=== PATIENT | female | born 1975 | race Caucasian/White ===

== ENCOUNTER 2019-11-02 14:31 | Emergency (ER) | payer OTHER, SELFPAY ==
--- NOTE | ~2019-11-02 | CT_ITS ---
EXAMINATION: CT abdomen pelvis wo con DATE: 11/02/2019 20:46 INDICATION: Abdominal pain and constipation TECHNIQUE: Computed tomography (CT) of the abdomen and pelvis was performed without intravenous contr ast. The dose-length product (DLP) was 389.84 mGy-cm. Automated exposure control and iterative recons truction technique were employed. COMPARISON: 11/15/2016 FINDINGS: The lung bases are clear. The heart size is normal. Stones are present in the nondistended gallbladder. The liver, spleen, pancreas, and adrenal glands are normal. The kidneys are unremarkable . No pathologically enlarged abdominal or pelvic lymph nodes are identified. There is calcified ather osclerosis of the aorta and many of the other arteries, somewhat greater than expected for patient ag e. There is no free intraperitoneal gas or evidence of bowel obstruction. There is a large volume of colonic stool. The appendix is normal. Moderate thoracolumbar spondylosis is unchanged. There is a sm all fat-containing umbilical hernia. IMPRESSION: 1. Constipation. 2. Calcified atherosclerosis somewhat greater than expected for patient age. Reviewed, dictated and finalized at location A.
[2019-11-02 15:48] VITALS: BP 163/89; PULSE 100; RESP 18; TEMP 36.6; O2SAT 99
[2019-11-02 15:50] VITALS: BP 157/92; PULSE 86; RESP 16; TEMP 36.8; O2SAT 100
[2019-11-02 15:57] LABS: Basophils Percent Auto 0.2 % (0.2-1.2); Eosinophils Absolute Auto 0.1 K/mm3 (0-0.3); Eosinophils Percent Auto 0.7 % (0-4.4); Hematocrit 36.9 % (37.0-47.0); Hemoglobin 12.4 g/dL (12.0-15.0); Immature Granulocyte Absolute 0.02 K/mm3 (0.00-0.031); Immature Granulocyte Percent A 0.2 % (0-0.5); Lymphocytes Absolute Auto 1.35 K/mm3 (0.9-3.2); Lymphocytes Percent Auto 16.7 % (18.3-44.2); Mean Corpuscular HGB Conc 33.6 g/dl (32-36); Mean Corpuscular Hemoglobin 29.8 pg (26-34); Mean Corpuscular Volume 88.7 fl (80-100); Mean Platelet Volume 9.3 fl (7.4-10.4); Monocytes Absolute Auto 0.5 K/mm3 (0.1-0.6); Monocytes Percent Auto 5.6 % (2.6-8.5); Neutrophils Absolute Auto 6.2 K/mm3 (1.3-6.7); Neutrophils Percent Auto 76.6 % (45.5-73.1); Platelet Count Result 309 k/mm3 (150-375); Red Blood Count 4.16 M/mm3 (4.2-5.4); Red Cell Distribution Width 13.3 % (11.5-14.5); White Blood Count 8.1 K/mm3 (4.5-10.0)
[2019-11-02 16:09] LABS: Alanine Aminotransferase 24 U/L (4-35); Albumin Level 4.1 g/dL (3.5-5.1); Alkaline Phosphatase 46 U/L (38-126); Anion Gap 4 mmol/L (8-16); Aspartate Amino Transferase 24 U/L (14-36); Bilirubin,Total 0.6 mg/dL (0.2-1.3); Blood Urea Nitrogen 14 mg/dL (7-17); Calcium 9.1 mg/dL (8.4-10.2); Carbon Dioxide 27 mmol/L (22-30); Chloride 105 mmol/L (98-107); Estimated CRCL calculation 80 ml/min; Estimated Glomerular Filt Rate > 60; Glucose 125 mg/dL (65-105); Lipase 98 U/L (23-300); Potassium 4.4 mmol/L (3.4-5.0); Sodium 136 mmol/L (137-145)
[2019-11-02 16:23] LABS: Add Urine Microscopic? YES; Appearance Urine Clear (Clear); Bilirubin Urine Negative (Negative); Blood Urine Negative (Negative); Color Urine Straw (Yellow); Glucose Urine UA Negative (Negative); Ketones Urine Trace mg/dL (Negative); Leukocyte Esterase Ur Negative LEU/UL (Negative); Nitrate Urine Negative (Negative); Protein Urine 2+ mg/dL (Negative); RBC Urine 0-2 /hpf (0-2); Squamous Epithelial Cell Urine Occasional /hpf (Few); Urobilinogen Urine Negative mg/dL (<2.0); WBC Urine 0-3 /hpf
--- NOTE | 2019-11-02 20:06 | ED.ABDPAIN ---
HPI - Abdominal Pain General Chief Complaint: Abdominal Pain Stated Complaint: constipated Time Seen by Provider: 11/02/19 19:59 History of Present Illness HPI narrative: Pt c/o constipation x 4 days, last bowel movement was 4 days ago. Pt states she is having lower abd pain, dull aching, mild, non radiating. Pt states she has a h/o constipation, has taken stool softeners and has not worked. Denies n/v or fever. Related Data Home Medications Medication Instructions Recorded Confirmed docusate sodium 100 mg capsule 300 mg PO BID PRN cap 12/05/18 magnesium chloride 71.5 mg 71.5 mg PO BID 12/05/18 (magnesium chloride) tablet,delayed release multivitamin 1 tablet PO DAILY 12/05/18 Allergies Allergy/AdvReac Type Severity Reaction Status Date / Time naproxen Allergy Unknown Verified 11/15/16 14:55 sucralose Allergy Unknown Verified 11/15/16 14:55 Review of Systems Review of Systems: All systems reviewed & are unremarkable except as noted in HPI and below Constitutional: Constitutional: Denies body ache(s), Denies chills, Denies excessive sweating, Denies fatigue, Denies fever(s), Denies headache(s), Denies lethargy, Denies malaise, Denies weakness and Denies weight loss Eyes: Eyes: Denies blurry vision, Denies change in vision and Denies loss of vision ENT: Denies dizziness, Denies ear discharge, Denies headache(s), Denies lip swelling, Denies epistaxis, Denies nasal congestion, Denies neck pain, Denies throat swelling and Denies tongue swelling Cardiovascular: Cardiovascular: Denies chest pain, Denies chest pain at rest, Denies chest pain with activity, Denies diaphoresis, Denies rapid heart rate, Denies edema, Denies irregular heart rhythm, Denies lightheadedness, Denies palpitations, Denies dyspnea and Denies dyspnea on exertion Respiratory: Respiratory: Denies chest congestion, Denies cough, Denies hemoptysis, Denies dyspnea and Denies dyspnea on exertion Gastrointestinal: Gastrointestinal: Denies melena, Denies hematochezia, Reports constipation, Denies diarrhea, Denies nausea, Denies vomiting and Denies hematemesis Musculoskeletal: Musculoskeletal: Denies abnormal gait, Denies deformity, Denies joint swelling, Denies limited range of motion, Denies neck pain and Denies numbness Neurologic: Denies Abnormal speech present, Denies abnormal gait, Denies confusion, Denies dizziness, Denies headache(s), Denies focal weakness, Denies loss of vision, Denies numbness, Denies Other visual disturbances, Denies Sensory deficit (Neuro) and Denies weakness Psychiatric: Psychiatric: Denies confusion, Denies depression, Denies auditory hallucinations, Denies homicidal ideation and Denies suicidal ideation Endocrine: Endocrine: Denies cold intolerance, Denies excessive sweating, Denies fatigue, Denies heat intolerance and Denies palpitations Hematologic/Lymphatic: Hematologic/Lymphatic: Denies easy bleeding and Denies easy bruising Allergic/Immunologic: Allergic/Immunologic: Denies lip swelling, Denies throat swelling and Denies tongue swelling [facility] Social History Social History Smoking status: Never smoker Alcohol intake: never Gender identity (if verbalized by the patient): Female Exam Const: General: cooperative, healthy appearing, comfortable, no acute distress, well developed, alert and awake; No confusion Orientation/consciousness: oriented to person, oriented to place, oriented to time, patient oriented x3 and No confusion Limitations: no limitations HENMT: Head: normal to inspection, normocephalic and atraumatic Ears: hearing grossly normal bilaterally, TM normal on the right and TM normal on the left General nose exam: Normal external nose present, Normal nares present and No nasal discharge present Face and sinus: normal facial exam Mouth: Yes Normal oral and palatal mucosa present, Yes lip normal, Yes tongue normal and Yes oropharynx normal [place]
[2019-11-02] MEDS: SODIUM CHLORIDE 0.9% IV 1,000 ML 999 ML IV CONT (20:23)
[2019-11-02 20:24] VITALS: BP 170/100; PULSE 88; RESP 18; O2SAT 100
[2019-11-02 22:09] VITALS: BP 163/88; PULSE 92; RESP 16; O2SAT 96
[2019-11-02] MEDS: polyethylene glycoL 3350 238 GM BOTTLE 17 GM PO (23:23)
[2019-11-02] MEDS: MAGNESIUM CITRATE 300 ML BTL PO (23:23)
[2019-11-02] MEDS: DOCUSATE SODIUM 100 MG CAPSULE 200 MG PO (23:23)
[2019-11-02 23:28] VITALS: BP 179/98; PULSE 98; RESP 20; O2SAT 99
[2019-11-03 02:01] VITALS: BP 158/89; PULSE 89; RESP 20; O2SAT 96
== END 2019-11-03 02:06 | disposition home or self-care (01) ==
PROVIDERS: Emergency Medicine; Emergency Provider Emergency Medicine; PCP Internal Medicine
DX: K59.09 Other constipation (principal); I70.0 Atherosclerosis of aorta
CPT/HCPCS: 36415; 74176; 80053; 81001; 81025; 83690; 85025; 96360; 96361; 99284; A9270; J7030

== ENCOUNTER 2023-08-20 09:16 | Outpatient (CLI) | payer OTHER, SELFPAY ==
[2023-08-20 09:52] LABS: Hemoglobin 12.3 g/dL (12.0-15.0); Mean Corpuscular HGB Conc 31.5 g/dl (32-36); Mean Corpuscular Hemoglobin 26.9 pg (26-34); Mean Corpuscular Volume 85.3 fl (80-100); Mean Platelet Volume 9.5 fl (7.4-10.4); Platelet Count Result 376 k/mm3 (150-375); Red Blood Count 4.57 M/mm3 (4.2-5.4); Red Cell Distribution Width 18.2 % (11.5-14.5); White Blood Count 7.6 K/mm3 (4.5-10.0)
[2023-08-20 09:59] LABS: Appearance Urine Clear (Clear); Bacteria Urine Rare /hpf; Bilirubin Urine Negative (Negative); Blood Urine Negative (Negative); Color Urine Yellow (Yellow); Glucose Urine UA Negative (Negative); Ketones Urine Negative (Negative); Leukocyte Esterase Ur Negative LEU/UL (Negative); Nitrate Urine Negative (Negative); Protein Urine 3+ mg/dL (Negative); RBC Urine 0-2 /hpf (0-2); Specific Grav Ur 1.016 (1.001-1.035); Squamous Epithelial Cell Urine None Seen /hpf (Few); Urobilinogen Urine 0.2 mg/dL (<2.0); WBC Urine 0-5 /hpf (0-3)
[2023-08-20 10:05] LABS: Albumin Level 4.2 g/dL (3.5-5.1); Anion Gap 9 mmol/L (4-12); Blood Urea Nitrogen 23 mg/dL (7-17); Calcium 9.6 mg/dL (8.4-10.2); Carbon Dioxide 30 mmol/L (22-30); Chloride 100 mmol/L (98-107); Creatine Kinase 78 U/L (30-135); Estimated Glomerular Filt Rate 53; Glucose 122 mg/dL (65-110); Phosphorus 4.9 mg/dL (2.5-4.5); Potassium 4.4 mmol/L (3.4-5.0); Sodium 139 mmol/L (137-145)
[2023-08-20 10:17] LABS: Parathyroid Intact < 3.5 pg/mL (7.5-53.5)
[2023-08-20 10:20] LABS: Erythrocyte Sedimentation Rate 15 mm/hr (0-20)
[2023-08-20 10:32] LABS: Complement C3 105 mg/dL (88-165)
[2023-08-20 10:36] LABS: Creatinine Urine 63.3 mg/dL
[2023-08-20 10:54] LABS: Total Protein Urine Random 342 mg/dL
[2023-08-20 11:41] LABS: Add Urine Microscopic? YES
[2023-08-22 16:22] LABS: Kappa\\Lambda Light Chains 1.71 (0.26-1.65); Lambda Light Chain 25.5 mg/L (5.7-26.3)
[2023-08-24 21:03] LABS: Immunofixation, Serum Normal pattern.
== END 2023-08-20 09:17 | disposition home or self-care (01) ==
PROVIDERS: PCP Nurse Practitioner; Visit Provider Internal Medicine Nephrology
DX: N18.31 Chronic kidney disease, stage 3a (principal)
CPT/HCPCS: 36415; 80069; 81001; 82550; 82570; 83883; 83970; 84156; 85027; 85652; 86038; 86039; 86160; 86334

== ENCOUNTER 2023-09-09 06:36 | Outpatient (CLI) | payer OTHER, SELFPAY ==
[2023-09-09 09:53] LABS: Total Volume 24 Hour Urine 1100 ml; Urea Nitrogen 24 Hour Urine 6.3 G/DAY (12-20)
[2023-09-10 18:54] LABS: Creat 24 Hr 0.78 g/24 h (0.50-2.15); Pro/Creat Ratio 1606 mg/g creat (<150); Pro/Creat Ratio mg/mg 1.606 (<0.150); Protein,total, 24 Hr Ur 1254 mg/24 h (<150)
[2023-09-12 09:43] LABS: Albumin 84 %
== END 2023-09-09 06:37 | disposition home or self-care (01) ==
LOC: ANHLAB 06:37
PROVIDERS: PCP Nurse Practitioner; Visit Provider Internal Medicine Nephrology
DX: N18.31 Chronic kidney disease, stage 3a (principal)
CPT/HCPCS: 81050; 84540; 86335

== ENCOUNTER 2024-09-01 16:35 | Emergency (ER) | payer OTHER, SELFPAY ==
[2024-09-01 16:54] VITALS: BP 162/87; PULSE 84; RESP 16; TEMP 36.7; O2SAT 100
[2024-09-01 17:29] LABS: EDSTREPNEGPOS1 Negative (Negative)
--- NOTE | 2024-09-01 18:26 | ED_ITS ---
HPI - URI/Sore Throat General Chief Complaint: Upper Respiratory Infection Stated Complaint: Sore Throat,Cough,Drainage Time Seen by Provider: 09/01/24 17:10 Source: patient and RN notes reviewed Mode of arrival: ambulatory Limitations: no limitations History of Present Illness HPI Narrative: 49-year-old female presents Express Care complaining of upper respiratory symptoms for approximately 1 week. Patient reports congestion, runny nose, mucopurulent nasal drainage, sore throat, dry cough. Patient says symptoms are getting worse and not getting better. Patient tried [id number] medications that relief. 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 Patient denies any chest pain, difficulty breathing, nausea vomiting, diarrhea, abdominal pain, or any other symptoms. Has a history of coronary artery disease status post stent placement, type 1 diabetes, hypertension. Related Data Home Medications ?Medication ?Instructions ?Recorded ?Confirmed ?Last Taken ?Type magnesium chloride 71.5 mg 71.5 mg PO BID 12/05/18 08/26/23 Unknown History (magnesium chloride) tablet,delayed release (Slow-Mag) multivitamin 1 tablet PO DAILY 12/05/18 08/26/23 Unknown History sacubitril 24 mg-valsartan 26 mg 1 tablet PO BID 07/18/23 08/26/23 Unknown History tablet (Entresto) clopidogrel 75 mg tablet 75 mg PO DAILY 08/20/23 08/26/23 Unknown History zinc acetate 50 mg (zinc) capsule 50 mg PO DAILY 08/20/23 08/26/23 Unknown History (Galzin) atorvastatin 40 mg tablet mg 09/01/24 Unknown History carvedilol 3.125 mg tablet mg 09/01/24 Unknown History spironolactone 25 mg tablet mg 09/01/24 Unknown History Allergies Allergy/AdvReac Type Severity Reaction Status Date / Time naproxen AdvReac Intermediate Nausea Verified 09/01/24 16:50 sucralose AdvReac Intermediate Nausea Verified 09/01/24 16:50 Review of Systems Review of Systems: CONSTITUTIONAL: Denies fever, chills, body aches, or sweats. EYES: Denies visual changes, redness, or discharge. ENT: Positive for rhinorrhea, congestion, sore throat. Negative for otalgia. CARDIOVASCULAR: Denies chest pain, palpitations, or edema. RESPIRATORY: Positive for cough. Negative for dyspnea. GASTROINTESTINAL: Denies abdominal pain, nausea, vomiting, or diarrhea. GENITOURINARY: Denies dysuria or hematuria. SKIN: Denies rash or itching. MUSCULOSKELETAL: Denies back pain, joint pain, or myalgia. NEUROLOGIC: Denies headache, numbness, or weakness. PSYCHIATRIC: Denies anxiety or depression. All other systems reviewed are negative, except as documented in HPI. [facility] Past Medical History Medical History History of common carotid artery stent placement BMI 24.0-24.9, adult COVID-19 Depression Diverticulitis DM (diabetes mellitus), type 2, uncontrolled Type 2 diabetes mellitus without complication Surgical History Surgical History History of dilation and curettage H/O: hysterectomy Social History Social History Smoking status: Former smoker Second hand tobacco smoke exposure: No Alcohol intake: current Alcohol use details: once a month Substance use: never Substance use type: does not use Do You Feel Safe in your Home?: Yes Lack of Transportation: No Lack of Food: Never True Current Housing: I Have Housing Concerned About Future Housing: No Difficulty Paying Gas/Electric Bills: No Difficulty Paying for Meds: YES Currently Unemployed: No Education: Bachelor's Degree Difficulty w/ Childcare or Family Care: No Living arrangements: alone Occupation/Education: occupation 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 There is no relevant family history pertinent to the patient complaint. Exam Narrative: GENERAL: This is a well-nourished, well-developed adult, in no apparent distress. They are non ill-appearing, nontoxic appearing. HEAD: normocephalic, atraumatic. EYES: Sclera clear/white. Vision is grossly intact. Conjunctiva normal bilaterally. Extraocular movements intact. EARS: External ears normal, auditory canals clear and without drainage, TMs without erythema or perforation. Hearing grossly intact. NOSE: External nose normal with no obvious nasal discharge, nasal turbinates erythematous, no rhinorrhea. THROAT: Mucous membranes moist, posterior pharynx erythematous without exudate. Uvula is midline. Postnasal drip present. NECK: Neck supple, non-tender without lymphadenopathy, masses or thyromegaly. CARDIOVASCULAR: Regular rate and rhythm without murmurs, gallops, or rubs. RESPIRATORY: Clear to auscultation. Breath sounds equal bilaterally. No wheezes, rales, or rhonchi. SKIN: warm, Dry, intact with no suspicious lesions or rash, good texture and turgor. NEURO: awake, alert, and oriented to person, place and time. There were no obvious focal neurologic abnormalities. EXTREMITIES: No joint tenderness, effusion, or edema noted. BACK: Nontender without deformity. Course Course Emergency Course: Portions of this record may have been created with voice recognition software Level of Care: Express Care Visit Vital Signs Vital signs: Vital Signs Temperature 98.1 F 09/01/24 16:54 Pulse Rate 84 09/01/24 16:54 Respiratory Rate 16 09/01/24 16:54 Blood Pressure 162/87 H 09/01/24 16:54 Pulse Oximetry 100 09/01/24 16:54 Temperature 98.1 F 09/01/24 16:54 Pulse Rate 84 09/01/24 16:54 Respiratory Rate 16 09/01/24 16:54 Blood Pressure 162/87 H 09/01/24 16:54 Pulse Oximetry 100 09/01/24 16:54 MDM - URI/Sore Throat MDM Narrative Medical decision making narrative: Rapid strep is negative. Throat culture pending. Given patient's length of symptoms that her symptoms are worsening will go ahead and treat her for bacterial sinusitis with Augmentin. Patient requesting fluconazole as she gets yeast infections while taking antibiotics. Prescribed fluconazole in by stone take if she develops symptoms. Discussed physical exam findings. Advised supportive measures and signs/symptoms to go to the ER. Pt is appropriate for outpt treatment and f/u. Differential Diagnosis Differential diagnosis: Likely upper respiratory infection, sinusitis, viral infection and pharyngitis Lab Data Attestation: I reviewed the patient's lab results. Labs: Lab Results 09/01/24 Range/Units 17:27 POC Grp A Strep Screen Negative (Negative) Discharge Plan Discharge Clinical Impression: Sinusitis Qualifiers: Sinusitis location: unspecified location Chronicity: acute Recurrence: non- recurrent Qualified Code(s): J01.90 - Acute sinusitis, unspecified Patient Disposition: Home Condition: Stable Instructions: Antibiotic Form, Sinusitis (ED) Additional Instructions: Your rapid strep was negative today. A throat culture sent off and if it is positive for strep you will be contacted. Is likely have a sinus infection. Take the antibiotics as directed and complete the course even if you start to feel better. You may use a Neti pot saline rinse 3 times a day with lukewarm distilled water Continue to take Tylenol as needed for pain or fevers. Use a humidifier or vaporizer at night. Drink plenty of water. 8-10 glasses per day. Use flonase 2 times per day for 5 days then as needed Take mucinex 2 times per day and be sure to take with 8oz of water. Follow up with Primary provider in 3-5 days Please go to the ER if he develops any difficulty breathing, worsening symptoms, or any other concerns Take fluconazole if he develops vaginal yeast infection symptoms while on antibiotics. You may repeat the dose every 72 hours symptoms persist for maximum of 2 doses. Patient Language: Turkmen Prescriptions: New fluconazole 150 mg tablet 150 mg PO Q72H Qty: 2 0RF amoxicillin-pot clavulanate 875-125 mg tablet 1 tablet PO Q12H 7 Days Qty: 14 0RF No Action atorvastatin 40 mg tablet spironolactone 25 mg tablet carvedilol 3.125 mg tablet Entresto 24-26 mg tablet 1 tablet PO BID clopidogrel 75 mg tablet 75 mg PO DAILY Galzin 50 mg (zinc) capsule 50 mg PO DAILY docusate sodium [Colace] 100 mg capsule 100 mg PO BID PRN (Reason: constipation) Qty: 14 0RF polyethylene glycol 3350 [Miralax] 17 gram/dose powder 17 gm PO DAILY PRN (Reason: constipation) Qty: 238 0RF Slow-Mag 71.5 mg tablet,delayed release (DR/EC) 71.5 mg PO BID multivitamin Tablet 1 tablet PO DAILY insulin glargine [Basaglar KwikPen U-100 Insulin] 100 unit/mL (3 mL) insulin pen 15 unit subcut QPM Qty: 15 1RF buspirone 15 mg tablet See Rx Instructions .ROUTE .COMPLEX Qty: 90 1RF Dose Instruction: TAKE 1 TABLET BY MOUTH THREE TIMES DAILY Rx Instructions: TAKE 1 TABLET BY MOUTH THREE TIMES DAILY Follow-up/Referrals: Ba,DANI Pink [Primary Care Provider] - Time of Disposition: 17:24
== END 2024-09-01 17:32 | disposition home or self-care (01) ==
PROVIDERS: PCP Physician Assistant
DX: J01.90 Acute sinusitis, unspecified (principal); Z87.891 Personal history of nicotine dependence; E10.9 Type 1 diabetes mellitus without complications; I25.10 Atherosclerotic heart disease of native coronary artery without angina pectoris; Z95.5 Presence of coronary angioplasty implant and graft; F32.A Depression, unspecified
CPT/HCPCS: 87081; 87880; 99213; G0463

== ENCOUNTER 2024-09-23 16:38 | Emergency (ER) | payer OTHER, SELFPAY ==
--- NOTE | 2024-09-23 16:45 | ED_ITS ---
HPI - General Adult General Chief complaint: Upper Respiratory Infection Stated complaint: sore throat Source: patient Mode of arrival: ambulatory Limitations: no limitations History of Present Illness HPI narrative: Pt is a 49 y/o female presenting with c/o sore throat. Additional sx reported include cough. Sx began 2-3 days ago. 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 No known exposure to COVID, FLU, STREP, PNA. NO additional complaints. Related Data Home Medications ?Medication ?Instructions ?Recorded ?Confirmed ?Last Taken ?Type magnesium chloride 71.5 mg 71.5 mg PO BID 12/05/18 08/26/23 Unknown History (magnesium chloride) tablet,delayed release (Slow-Mag) multivitamin 1 tablet PO DAILY 12/05/18 08/26/23 Unknown History sacubitril 24 mg-valsartan 26 mg 1 tablet PO BID 07/18/23 08/26/23 Unknown History tablet (Entresto) clopidogrel 75 mg tablet 75 mg PO DAILY 08/20/23 08/26/23 Unknown History zinc acetate 50 mg (zinc) capsule 50 mg PO DAILY 08/20/23 08/26/23 Unknown History (Galzin) atorvastatin 40 mg tablet mg 09/01/24 Unknown History carvedilol 3.125 mg tablet mg 09/01/24 Unknown History spironolactone 25 mg tablet mg 09/01/24 Unknown History Allergies Allergy/AdvReac Type Severity Reaction Status Date / Time naproxen AdvReac Intermediate Nausea Verified 09/23/24 16:52 sucralose AdvReac Intermediate Nausea Verified 09/23/24 16:52 Review of Systems Review of Systems: CONSTITUTIONAL: Denies body aches, fever, chills, or sweats. EYES: Denies visual changes, redness, or discharge. ENT: Reports sore throat, denies rhinorrhea, congestion, or otalgia. CARDIOVASCULAR: Denies chest pain, palpitations, or edema. RESPIRATORY: reports cough denies dyspnea. GASTROINTESTINAL: Denies abdominal pain, nausea, vomiting, or diarrhea. GENITOURINARY: Denies dysuria or hematuria. SKIN: Denies rash, itching, or wounds. MUSCULOSKELETAL: Denies back pain, joint pain, or myalgia. NEUROLOGIC: Denies headache, numbness, tingling, or weakness. PSYCH: Denies depression or anxiety. All systems reviewed & are unremarkable except as noted in HPI and below PMFSH Past Medical History Medical History History of common carotid artery stent placement BMI 24.0-24.9, adult COVID-19 Depression Diverticulitis DM (diabetes mellitus), type 2, uncontrolled Type 2 diabetes mellitus without complication Surgical History Surgical History History of dilation and curettage H/O: hysterectomy Social History Social History Smoking status: Former smoker Second hand tobacco smoke exposure: No Alcohol intake: current Alcohol use details: once a month Substance use: never Substance use type: does not use Do You Feel Safe in your Home?: Yes Lack of Transportation: No Lack of Food: Never True Current Housing: I Have Housing Concerned About Future Housing: No Difficulty Paying Gas/Electric Bills: No Difficulty Paying for Meds: YES Currently Unemployed: No Education: Bachelor's Degree Difficulty w/ Childcare or Family Care: No Living arrangements: alone Occupation/Education: occupation 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 HEAD: Normocephalic, atraumatic. EYES: EOMI. No redness or drainage. Conjunctivae normal. ENT: Mucous membranes pink and moist. Nares clear. No rhinorrhea. TMs normal bilaterally. Throat normal. Uvula midline. NECK: Normal AROM. Supple. No lymphadenopathy. CHEST: No respiratory distress. Clear to auscultation. HEART: Regular rate and rhythm. No murmur appreciated. Normal peripheral pulses. ABDOMEN: Soft, nontender, nondistended, normal active bowel sounds. MUSCULOSKELETAL: No bony tenderness. EXTREMITIES: Normal range of motion. No edema. SKIN: Warm, dry, no rash. Capillary refill normal. Normal skin turgor. NEURO: No focal deficits. Alert and oriented x3. Gait steady. PSYCH: Normal affect. No signs of depression or anxiety. Course Course Emergency Course: Discussed elevated blood pressure readings with patient and advised daily BP monitoring and f/u with PCP if persisting. Level of Care: Express Care Visit Vital Signs Vital signs: Vital Signs Temperature 98.2 F 09/23/24 16:55 Pulse Rate 94 09/23/24 16:55 Respiratory Rate 16 09/23/24 16:55 Blood Pressure 165/82 H 09/23/24 16:55 Pulse Oximetry 99 09/23/24 16:55 Temperature 98.2 F 09/23/24 16:55 Pulse Rate 94 09/23/24 16:55 Respiratory Rate 16 09/23/24 16:55 Blood Pressure 165/82 H 09/23/24 16:55 Pulse Oximetry 99 09/23/24 16:55 Medical Decision Making Vital Signs Vital Signs: Vital Signs Temperature 98.2 F 09/23/24 16:55 Pulse Rate 94 09/23/24 16:55 Respiratory Rate 16 09/23/24 16:55 Blood Pressure 165/82 H 09/23/24 16:55 Pulse Oximetry 99 09/23/24 16:55 Temperature 98.2 F 09/23/24 16:55 Pulse Rate 94 09/23/24 16:55 Respiratory Rate 16 09/23/24 16:55 Blood Pressure 165/82 H 09/23/24 16:55 Pulse Oximetry 99 09/23/24 16:55 Discharge Plan Discharge Clinical Impression: Essential (primary) hypertension Upper respiratory infection Qualifiers: URI type: acute nasopharyngitis (common cold) Qualified Code(s): J00 - Acute nasopharyngitis [common cold] Patient Disposition: Home Condition: Stable Instructions: Antibiotic Form, Upper Respiratory Infection (ED) Additional Instructions: Go straight to ER should your symptoms become worse or should any new symptoms develop Patient Language: Indian Prescriptions: No Action atorvastatin 40 mg tablet spironolactone 25 mg tablet carvedilol 3.125 mg tablet fluconazole 150 mg tablet 150 mg PO Q72H Qty: 2 0RF Entresto 24-26 mg tablet 1 tablet PO BID clopidogrel 75 mg tablet 75 mg PO DAILY Galzin 50 mg (zinc) capsule 50 mg PO DAILY docusate sodium [Colace] 100 mg capsule 100 mg PO BID PRN (Reason: constipation) Qty: 14 0RF polyethylene glycol 3350 [Miralax] 17 gram/dose powder 17 gm PO DAILY PRN (Reason: constipation) Qty: 238 0RF Slow-Mag 71.5 mg tablet,delayed release (DR/EC) 71.5 mg PO BID multivitamin Tablet 1 tablet PO DAILY insulin glargine [Basaglar KwikPen U-100 Insulin] 100 unit/mL (3 mL) insulin pen 15 unit subcut QPM Qty: 15 1RF buspirone 15 mg tablet See Rx Instructions .ROUTE .COMPLEX Qty: 90 1RF Dose Instruction: TAKE 1 TABLET BY MOUTH THREE TIMES DAILY Rx Instructions: TAKE 1 TABLET BY MOUTH THREE TIMES DAILY Follow-up/Referrals: PHYSICIAN,OFFICE EMPLOYEE [Primary Care Provider] - 09/24/24 Stand Alone Forms: Work/School Release IP Time of Disposition: 17:09
[2024-09-23 16:55] VITALS: BP 165/82; PULSE 94; RESP 16; TEMP 36.8; O2SAT 99
[2024-09-23 17:11] LABS: EDCOVIDSCREEN Negative (Negative); EDINFLUASCREEN Negative (Negative); EDINFLUBSCREEN Negative (Negative); EDSTREPNEGPOS1 Negative (Negative)
== END 2024-09-23 17:16 | disposition home or self-care (01) ==
PROVIDERS: Emergency Provider Registered Nurse
DX: I10 Essential (primary) hypertension (principal); J00 Acute nasopharyngitis [common cold]; Z20.822 Contact with and (suspected) exposure to COVID-19; E11.9 Type 2 diabetes mellitus without complications; Z79.4 Long term (current) use of insulin; F32.A Depression, unspecified; Z86.16 Personal history of COVID-19; Z95.828 Presence of other vascular implants and grafts; Z87.891 Personal history of nicotine dependence
CPT/HCPCS: 87426; 87804; 87880; 99212; G0463

== ENCOUNTER 2024-09-25 17:53 | Emergency (ER) | payer OTHER, SELFPAY ==
--- OUTSIDE RECORDS SUMMARY | 2024-09-25 17:56 | XMS_ITS | Encounter Summary ---
Author Organization [facility] Address [address] [place] [address] Care Team Providers Care Livestock Broker Name Role Phone Ever Gaona NP Primary Care Provider [phone] Encounter Details Date Type Department Care Team (Late st Contact Info) Description 05/25/2024 MyCTradeGigt Message Enc [facility] Diabetes and Endocrinology - [address] [address] Bettye Mckeon MD [address] [place] [address] [phone] Donna Goode Social History Tobacco Use Types Packs/Day Years Used Date Smoking Tobacco: Never Passive Smoke Exposure: Never Smokeless Tobacco: Never Alcohol Use Standard Drinks/Week Comments Yes 0 (1 standard drink = 0.6 oz pur e alcohol) rare, social [id number] Health Literacy Answer Date Recor ded How often do you need to hav e someone help you when you read instructions, pamphlets, or other written material from your doctor or pharmacy? Never 02/19/2024 [facility] Utilities Answer Date Recorded In the past 12 months has e electric, gas, oil, or water company threatened to shut off services in your home? No 02/19/2024 Humiliation, Afraid, Rape, and Kick questionnair e Answer Date Recorded Within the last year, have y ou been afraid of your partner or ex-partner? No 02/19/2024 Within the last year, have y ou been humiliated or emotionally abused in other ways by your partner or ex-partner? No Within the last year, have y ou been kicked, hit, slapped, or otherwise physically hurt by your partner or ex-partner? No 02/19/2024 Within the last year, have y ou been raped or forced to have any kind of sexual activity by your partner or ex-partner? No 02/19/2024 Social Connection and Isolat ion Panel [NHANES] Answer Date Recorded In a typical week, how many times do you talk on the phone with family, friends, or neighbors? More than three times a week 02/19/2024 How often do you get togethe r with friends or relatives? More than three times a week 02/19/2024 How often do you attend chur ch or buddhist services? Never 02/19/2024 Do you belong to any clubs o r organizations such as temple groups, unions, fraternal or athletic groups, or school groups? Yes 02/19/2024 How often do you attend meet ings of the clubs or organizations you belong to? Never 02/19/2024 Are you , , di vorced, , never , or living with a partner? Never 02/19/2024 AUDIT-C Answer Date Recorded Q1: How often do you have a drink containing alc ohol? Monthly or less 02/19/2024 Q2: How many drinks containi ng alcohol do you have on a typical day when you are drinking? 3 or 4 02/19/2024 Q3: How often do you have si x or more drinks on one occasion? Monthly 02/19/2024 Overall Financial Resource Strain (CARDIA) Answe r Date Recorded How hard is it for you to pa y for the very basics like food, housing, medical care, and heating? Not hard at all 02/19/2024 PHQ-2 Answer Date Recorded Patient Health Questionnaire-2 Score 0 01/16/2024 [facility] Occupat ional Health - Occupational Stress Questionnaire Answer Date Recorded Do you feel stress - tense, restless, nervous, or anxious, or unable to sleep at night because your mind is troubled all the time - these days? Very much 02/19/2024 Hunger Vital Sign Answer Date Recorded Within the past 12 months, y ou worried that your food would run out before you got the money to buy more. Never true 02/18/19 25 Within the past 12 months, t he food you bought just didn't last and you didn't have money to get more. Never true 02/19/2024 PRAPARE - Transportation Answer Date Re corded In the past 12 months, has l ack of transportation kept you from medical appointments or from getting medications? No 09/2024 In the past 12 months, has l ack of transportation kept you from meetings, work, or from getting things needed for daily living? No 02/19/2024 Housing Stability Vital Sign Answer Marlo e Recorded In the last 12 months, was t here a time when you were not able to pay the mortgage or rent on time? No 08/31/2022 In the last 12 months, how many places have you lived? 1 08/31/2022 In the last 12 months, was t here a time when you did not have a steady place to sleep or slept in a intermediate (including now)? No 08/31/2022 Housing Stability Vital Sign Answer Marlo e Recorded In the last 12 months, was t here a time when you were not able to pay the mortgage or rent on time? No 02/19/2024 In the past 12 months, how m any times have you moved where you were living? 1 02/19/2024 At any time in the past 12 m [facility], were you homeless or living in a intermediate (including now)? No 02/19/2024 Comments No Sex and Gender Information Value Date Recorded Sex Assigned at Female 04/20/2024 11:41 AM CDT Legal Sex Female 8:47 AM CDT Gender Identity Not on file Sexual Orientation Not on file documented as of this encounter Functional Status * Are you deaf or do you have serious difficulty hearing Answer Date of Assessment Author Status No 02/19/2024 3:00 PM Patrica Vigil RN Active * Are you blind or do you have serious difficulty seeing, even when wearing glasses? Answer Date of Assessment Author Status No 02/19/2024 3:00 PM Patirca Vigil RN Active * Do you have serious difficulty walking or climbing stairs? Answer Date of Assessment Author Status No 02/19/2024 3:00 PM MANAGER AGRICULTURE Sunitha, Patrica C, RN Active * Do you have difficulty dressing or bathing? Answer Date of Assessment Author Status No 02/19/2024 3:00 PM MANAGER AGRICULTURE Patrica Helton RN Active * Because of a physical, mental, or emotional condition, do you have difficulty doing errands alone such as visiting a doctor's office or shopping? Answer Date of Assessment Author Status No 02/19/2024 3:00 PM MANAGER AGRICULTURE Patrica Helton RN Active documented as of this encounter Mental Status * Because of a physical, mental, or emotional condition, do you have serious difficulty concentrating, remembering, or making decisions? Answer Entry Date Author Status No 02/19/2024 3:00 PM MANAGER AGRICULTURE Patrica Helton RN Active documented in this encounter Progress Notes * Angelina Velázquez MA - 05/25/2024 12:51 PM CDT FYI documented in this encounter Plan of Treatment Upcoming Encounters Date Type Department Care Team (Late st Contact Info) Description 12/01/2024 3:15 PM CDT Office Visit [facility], [address] [address] Molina Olsen MD [facility]. [address] [address] 01/28/2025 2:00 PM MANAGER AGRICULTURE Office Visit [facility] Diabetes and Endocrinology - [address] [address] Bettye Mckeon MD [address] [place] [phone] documented as of this encounter Visit Diagnoses Not on filedocumented in this encounter Additional Health Concerns Assessment Noted Time PHQ-9 Depression Total Score: 0 05/02/19 22 1:28 PM CDT documented as of this encounter Care Teams Livestock Broker Relationship Specialty Start Date End Date Ever Gaona NP PCP - General NURSE PRACTITIONER 07/17/22 documented as of this encounter
--- OUTSIDE RECORDS SUMMARY | 2024-09-25 17:56 | XMS_ITS | Clinical Summary ---
Author Organization [facility] Address [address] [place] [address] Care Team Providers Care Stock Cutter Name Role Phone Clint Mcmillandie Ginny LOPEZ Primary Care Provider [phone] Source Comments [facility],non-owned Affiliates and Associated Physician Practices is amultiple site organization consisting of ambulatory clinics and hospital sitesin [place], [place], [place] and [place]. This disclosure is being madepursuant to the Care Everywhere program and may not contain all information available regarding this patient. Last updated 17.[facility] Allergies Active Allergy Reactions Criticality Noted Date Comments Naproxen Headache,Vomiting 04/07/2018 Sucralose GI Discomfort,Headache 02/02/2019 Medications * Be aware that medications may not be up to date on this document. Alwaysverify current medications with the patient. Calcium Carb-Cholecalc iferol (CALCIUM 500 +D PO) Take 500 mg by mouth once daily 9 Active Cranberry 125 MG Take 4,200 mg by mouth once daily 9 Active VITAMIN E PO Take 180 mg by mouth once daily 9 Active ascorbic acid (VITAMIN C) 500 MG tablet Take 1,000 mg by mouth once daily 9 Active Cyanocobalamin 1000 MCG Take 1 tablet by mouth once daily 9 Active Cholecalcifero l (VITAMIN D3) 10 MCG (400 UNIT) tablet Take 400 Units by mouth once daily 9 Active Docusate Sodium (DSS) 100 MG Take 300 mg by mouth 2 times daily 9 Active insulin glargine (LANTUS) pen Inject 26 Units subcutaneously once daily Active losartan (COZAAR) 25 MG tablet Take 50 mg by mouth once daily 9 Active magnesium 250 MG tablet Take 500 mg by mouth once daily 9 Active Paradox-3 Fatty Acids (FISH OIL) 1000 MG capsule Take 500 mg by mouth once daily 9 Active Potassium 99 MG tablet Take 1 tablet by mouth once daily 9 Active Specialty Vitamins Products (BIOTIN PLUS KERATIN) 43326-923 MCG-MG TABS Take 1 tablet by mouth once daily 9 Active Zinc Methionate 50 MG CAPS Take 100 mg by mouth once daily 9 Active Immunizations Immunization Administration Dates Next Due TD (ADULT), 5 LF TETANUS TOXOID, ADSORBED, PF Social History Tobacco Use Types Packs/Day Years Used Date Smoking Tobacco: Never Smokeless Tobacco: Never Comments No Sex and Gender Information Value Date Recorded Sex Assigned at Not on file Legal Sex Female 3:45 PM ESCROW MANAGER Gender Identity Not on file Sexual Orientation Not on file Last Filed Vital Signs Vital Sign Reading Time Taken Comments Blood Pressure 140/90 07/08/2020 3:50 PM CDT Pulse 73 07/08/2020 3:50 PM CDT Temperature 36.7 C (98.1 F) 07/08/2020 3:50 PM CDT Respiratory Rate 16 07/08/2020 3:50 PM CDT Oxygen Saturation 97% 07/08/2020 3:50 PM CDT Inhaled Oxygen Concentration - - Weight 70.3 kg (155 lb) 07/08/2020 3:50 PM CDT Height 172.7 cm (5' 8) 07/08/2020 3:50 PM CDT Body Mass Index 23.57 07/08/2020 3:50 PM CDT Plan of Treatment Health Maintenance Due Date Last Done Comments COLOGUARD (AGES 45-75) - COL ON CA SCREENING 1976 COLON MONITORING 1976 COLONOSCOPY - COLON CA SCREENING 1976 CT COLONOGRAPHY - COLON CA SCREENING 1976 Colorectal Cancer Screening 1976 FIT - COLON CA SCREENING 1976 FLEX SIG - COLON CA SCREENING 1976 LIPID TESTING 1976 MAMMOGRAM 1976 HIV SCREENING 01/18/1991 HEPATITIS C SCREENING 01/14/1994 HEPATITIS B VACCINE (1 of 3 - 19+ 3-dose series) 01/18/1995 COVID-19 VACCINE (3 - 2023-2 5 season) 2023 04/04/2020, 03/14/2020 DEPRESSION SCREENING 02/12/2024 INFLUENZA VACCINE (#1) 2024 11/18/2012 ZOSTER VACCINE (1 of 2) 01/18/2026 DTAP/TDAP/TD VACCINES (2 - T d or Tdap) 04/07/2028 04/07/2018 HIB VACCINE Aged Out No longer eligi ble based on patient's age to complete this topic HPV VACCINE Aged Out No longer eligi ble based on patient's age to complete this topic MENINGOCOCCAL (Group B) VACCINE SHARED DECISION-MAKING Aged Out No longer eligible based on patient's age to complete this topic MENINGOCOCCAL GROUPS A/C/Y/W VACCINE Aged Out No longer eligible b ased on patient's age to complete this topic PNEUMOCOCCAL VACCINE Aged Out No long er eligible based on patient's age to complete this topic Insurance ANTHEM Care Teams Stock Cutter Relationship Specialty Start Date End Date Constantine Mcmillan DO [address] [place] [address] PCP - General Internal Medicine 07/08/20
--- OUTSIDE RECORDS SUMMARY | 2024-09-25 17:56 | XMS_ITS | Clinical Summary ---
Author Organization [facility] Address [address] [place] [address] Care Team Providers Care Business Development Professional Name Role Phone No, Physician Primary Care Provider [phone] Allergies Active Allergy Reactions Criticality Noted Date Comments Adhesive Rash Medium 06/15/2023 Latex Rash Medium 06/15/2023 Naproxen Headache,Vomiting Low 04/07/2018 Sucralose Stomach upset,Headache Low 02/02/2019 Medications calcium carbonate 430 mg calcium (1,000 mg) tablet,chewable Take 500 mg by mouth daily 9 Active cranberry fruit concentrate 125 mg tablet,disintegr ating Take 4,200 mg by mouth daily 9 Active CRANBERRY ORAL Take 4,200 mg by mouth daily 9 Active busPIRone (BUSPAR) 7.5 mg tablet Take 1 tablet (7.5 mg total) by mouth 2 (two) times a day as needed 3 Active carvediloL (COREG) 12.5 mg tablet Take 1 tablet (12.5 mg total) by mouth 2 (two) times a day 4 Active cholecalciferol 400 unit capsule Take 1 tablet/capsul e (400 Units total) by mouth daily 9 Active cyanocobalamin (Vitamin B-12) 1,000 mcg tablet Take 1 tablet (1,000 mcg total) by mouth daily 9 Active docusate sodium (COLACE) 100 mg capsule Take 3 capsules (300 mg total) by mouth 2 (two) times a day 9 Active furosemide (LASIX) 40 mg tablet Take 1 tablet (40 mg total) by mouth daily 4 Active BASAGLAR 100 unit/mL (3 mL) pen for injection Inject 24 Units under the skin daily 3 Active spironolactone (ALDACTONE) 25 mg tablet Take 0.5 tablets (12.5 mg total) by mouth daily 4 Active vit C,O-Os-isugf-lut ein-zeaxan (Ocuvite Lutein and Zeaxanthin) 60 mg-13.5 mg- 15 mg-2 mg-6 mg capsule Take 1 capsule by mouth daily Active ascorbic acid (ascorbic acid with jorge hips) 500 mg tablet,chewable Take 2 tablet/chew tab (1,000 mg total) by mouth daily 9 Active vitamin E acetate (VITAMIN E ORAL) Take 180 mg by mouth daily 9 Active magnesium gluconate 12.5 mg magne- sium (250 mg) tablet Take 500 mg by mouth daily 9 Active zinc acetate 50 mg (zinc) capsule Take 100 mg by mouth daily 9 Active atorvastatin (LIPITOR) 80 mg tablet Take 1 tablet (80 mg total) by mouth nightly 5 Active Entresto 24-26 mg tablet Take 1 tablet by mouth 2 (two) times a day Active valACYclovir (VALTREX) 500 mg tabletIndication s:HSV (herpes simplex virus) infection Take 1 tablet (500 mg total) by mouth daily 90 tablet 2 5 Active Active Problems Problem Noted Date Diagnosed Date Hypertension 02/28/2012 Overview (05/17/2016): Hypertension Diabetes mellitus 02/28/2012 Overview (05/17/2016): Diabetes mellitus Endometriosis 02/28/2012 Overview (05/18/2016): Endometriosis Encounters Date Type Department Care Team Description 07/22/2024 2:45 PM CDT Office Visit [facility] [address] [facility] [address] [place] [address] Sippel, Laura Asmita, DOOR SLINGER Routine gynecological examination (Primary Dx); HSV (herpes simplex virus) infection 06/29/2024 Telephone [facility] [address] [facility] [address] [place] [address] Goldie Ventura Medication Request from Last 3 Months Surgical History Surgery Date Site/Laterality Comments OTHER SURGICAL HISTORY endometriosis: laparoscopic fulguration OTHER SURGICAL HISTORY hymenal remnant: hymenectomy HYSTERECTOMY 02/12/2012 - 02/10/2013 Medical History Medical History Date Comments Endometritis endometriosis Hx Other Medical hymenal remnant Congestive heart failure (CHF) (HCC) 06/2023 Type 1 diabetes (HCC) History of stroke History of abnormal cervical Pap smear 2015, ASCUS HPV+, Colpo: LGSIL Social History Tobacco Use Types Packs/Day Years Used Date Smoking Tobacco: Never Smokeless Tobacco: Never Tobacco Cessation:Counseling Given: Not Answered Alcohol Use Standard Drinks/Week Comments Yes 0 (1 standard drink = 0.6 oz pur e alcohol) AUDIT-C Answer Date Recorded Q1: How often do you have a drink containing alc ohol? 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 Gender Identity Not on file Sexual Orientation Not on file Obstetrics History Last Filed Vital Signs Vital Sign Reading Time Taken Comments Blood Pressure 160/84 07/22/2024 3:04 PM CDT Pulse 114 07/31/2012 9:05 AM CDT Temperature - - Respiratory Rate - - Oxygen Saturation - - Inhaled Oxygen Concentration - - Weight 73.5 kg (162 lb) 07/22/2024 3:04 PM CDT Height 172.7 cm (5' 8) 06/20/2023 10:55 AM CDT Body Mass Index 24.63 06/20/2023 10:55 AM CDT Plan of Treatment Health Maintenance Due Date Last Done Comments Albumin Creatinine Ratio, Urine 1976 Breast Cancer Screening-Mammogram 1976 Colon Cancer Screening-Colonoscopy 1976 Depression Screening 1976 Hemoglobin A1C 1976 Dilated Eye Exam 1976 Foot Exam 1976 Pneumococcal vaccine <65 (1 of 2 - PCV) 01/18/1995 eGFR 05/22/2017 05/22/2016 Covid-19 Vaccine (6 - 2023-2 5 season) 2023 11/24/2022, 11/17/2021, 01/10/2021, Additional history exists Influenza Vaccine (#1) 2024 , 11/09/2020, 11/18/2012 Lipid Panel 02/19/2025 02/20/2024, 10/12, 06/14/2023 Regular Well Visit/Exam 18-64 07/22/2025 07/22/2024, 06/20/2023 DTaP/Tdap/Td Vaccine (2 - Td or Tdap) 03/15/2032 03/15/2022, 04/07/2018 Hepatitis B Screening Completed 12/04/2021 , 09/22/2021, 06/08/2021 Cervical Cancer Screening Discontinued 06/20/2023 Hepatitis C Screening Completed 12/30/2023 Procedures Procedure Name Priority Date/Time Associated Diagnosis Comments HEPATITIS C AB W/REFL TO HCV RNA, QN, PCR (REFL) Routine 12/30/2023 1:08 PM CRICKET COACH Screen for STD (sexually transmitted disease) PAP AND HPV, REFLEX TO HPV GENOTYPES Routine 06/20/2023 11:26 AM CDT Screening for malignant neoplasm of the cervix EGFR STAT 05/22/2016 1:38 PM CDT from Last 3 Months or Most Recently Relevant to Health Maintenance Results * HEPATITIS C AB W/REFL TO HCV RNA, QN, PCR (REFL) (12/30/2023 1:08 PM CRICKET COACH) Hep C Ab Non Reactive Non Reactive [facility] - Blood 12/30/2023 1:08 PM CRICKET COACH 12/30/2023 Narrative [facility] - 12/31/2023 7:36 AM CRICKET COACH Performed at: [facility] [id number] Scientist Electronics: Harry Lu PhD, Phone: [phone] Antoni Hackett MD LAB BLOOD ORDERABLES Lady kruse Result [facility] - * Pap and HPV, reflex to HPV Genotypes (06/20/2023 11:26 AM CDT) Clinical indication Comment [facility] - Comment:NEGATIVE FOR INTRAEP ITHELIAL LESION OR MALIGNANCY. Specimen adequacy: Comment [facility] - 01 Comment:Satisfactory for lizzie luation. No endocervical component is identified. Clinician provided ICD10 Comment [facility] - Comment:Z12.4 Performed by Comment [facility] - Comment:Heather Orellana, Cytot echnologist (ASCP) . . [facility] - Note: Comment [facility] - Comment: The Pap smear is a screening test designed to aid in the detection of premalignant and malignant conditions of the uterine cervix. It is not a diagnostic procedure and should not be used as the sole means of detecting cervical cancer. Both false-positive and false-negative reports do occur. Test methodology Comment [facility] - Comment: This liquid based ThinPrep(R) pap test was screened with the use of an image guided system. HPV Aptima Negative Negative [facility] Comment: This nucleic acid amplification test detects fourteen high-risk HPV types (16,18,31,33,35,39,45,51,52,56,58,59,66,68) without differentiation. HPV Genotype Reflex Comment [facility] - Comment:Criteria not met, HP V Genotype not performed. Thin prep 06/20/2023 11:2 6 AM CDT 06/20/2023 Narrative [facility] - 06/25/2023 4:11 PM CDT Performed at: - [address] [id number] Scientist Electronics: Kassi Devine MD, Phone: [phone] Performed at: - [address] [id number] Scientist Electronics: Kassi Devine MD, Phone: [phone] Specimen Comment: Source.............Cervix;Endocervix Specimen Comment: No. of containers..01 ThinPrep Vial Laura Asmita Javier DOOR SLINGER LAB CYTOLOGY ORDERABLES Fin al Result [facility] - 01 [facility] 02 * eGFR (05/22/2016 1:38 PM CDT) eGFR 100 mL/min/1.7 3 m2 [facility] Comment: Interpretive Data Reference Interval Normal >/= 90 mL/min/1.73m2 Mildly decreased* 60 - 89 mL/min/1.73m2 Mildly to moderately decreased 45 - 59 mL/min/1.73m2 Moderately to severely decreased 30 - 44 mL/min/1.73m2 Severely decreased 15 - 29 mL/min/1.73m2 Kidney Failure < 15 mL/min/1.73m2 *Relative to young adult level If -Micronesian multiply value by 1.16. Estimated glomerular filtration rate is determined by the CKD-EPI equation recommended by the National Kidney Foundation (KDIGO 2012 Clinical Practice Guideline for the Evaluation and Management of Chronic Kidney Disease. Kidney Intnl Suppl Feb 2012;3:1). The CKD-EPI equation should not be used for patients with unstable renal function and has not been validated in children and those over 70. Current interpretive data was last reviewed 2016. Blood specimen (specimen) 05/22/2016 1:38 PM CDT 05/22/2016 1:45 PM CDT us Baljit Nicolas DO LAB BLOOD ORDERABLES Final Result [facility] [address] Department [place] [address] from Last 3 Months or Most Recently Relevant to Health Maintenance Insurance [facility] [employer] Care Teams Business Development Professional Relationship Specialty Start Date End Date No, Physician PCP - General 06/20/23
--- OUTSIDE RECORDS SUMMARY | 2024-09-25 17:56 | XMS_ITS | Encounter Summary ---
Author Organization [facility] Address [address] [place] [address] Care Team Providers Care Television Equipment Operator Name Role Phone Ever Gaona NP Primary Care Provider [phone] Encounter Details Date Type Department Care Team (Late st Contact Info) Description 07/17/2023 Outsparkt Message Enc [facility] Medical Group Diabetes and Endocrinology - [address] [phone] Bettye Mckeon MD [address] [place] [phone] Lab results Social History Tobacco Use Types Packs/Day Years Used Date Smoking Tobacco: Never Passive Smoke Exposure: Never Smokeless Tobacco: Never Alcohol Use Standard Drinks/Week Comments Yes 0 (1 standard drink = 0.6 oz pur e alcohol) rare, social [facility] Utilities Answer Date Recorded In the past 12 months has [employer], gas, oil, or water [employer] threatened to shut off services in your home? No 06/14/2023 Humiliation, Afraid, Rape, and Kick questionnair e Answer Date Recorded Within the last year, have y ou been afraid of your partner or ex-partner? No 06/14/2023 Within the last year, have y ou been humiliated or emotionally abused in other ways by your partner or ex-partner? No Within the last year, have y ou been kicked, hit, slapped, or otherwise physically hurt by your partner or ex-partner? No 06/14/2023 Within the last year, have y ou been raped or forced to have any kind of sexual activity by your partner or ex-partner? No 06/14/2023 AUDIT-C Answer Date Recorded Frequency of Alcohol Consumption Never 02/02/2019 Average Number of Drinks Not on file 019 Frequency of Binge Drinking Not on file 01/12 Overall Financial Resource Strain (CARDIA) Answe r Date Recorded How hard is it for you to pa y for the very basics like food, housing, medical care, and heating? Not hard at all 06/14/2023 PHQ-2 Answer Date Recorded Patient Health Questionnaire-2 Score 2 08/02/2022 Hunger Vital Sign Answer Date Recorded Within the past 12 months, y ou worried that your food would run out before you got the money to buy more. Never true 06/14/19 24 Within the past 12 months, t he food you bought just didn't last and you didn't have money to get more. Never true 06/14/2023 PRAPARE - Transportation Answer Date Re corded In the past 12 months, has l ack of transportation kept you from medical appointments or from getting medications? No 04/2023 In the past 12 months, has l ack of transportation kept you from meetings, work, or from getting things needed for daily living? No 06/14/2023 Housing Stability Vital Sign Answer Marlo e [...] place to sleep or slept in a care home (including now)? No 08/31/2022 Housing Stability Vital Sign Answer Marlo e Recorded In the last 12 months, was t here a time when you were not able to pay the mortgage or rent on time? No 06/14/2023 In the past 12 months, how m any times have you moved where you were living? 1 06/14/2023 At any time in the past 12 m [facility], were you homeless or living in a care home (including now)? No 06/14/2023 Comments No Sex and Gender Information Value Date Recorded Sex Assigned at Female 04/20/2024 11:41 AM CDT Legal Sex Female 8:47 AM CDT Gender Identity Not on file Sexual Orientation Not on file documented as of this encounter Functional Status * Are you deaf or do you have serious difficulty hearing Answer Date of Assessment Author Status No 06/14/2023 5:39 PM CDT Shruti Toth R N Active * Are you blind or do you have serious difficulty seeing, even when wearing glasses? Answer Date of Assessment Author Status No 06/14/2023 5:39 PM CDT Shruti Toth R N Active * Do you have serious difficulty walking or climbing stairs? Answer Date of Assessment Author Status No 06/14/2023 5:39 PM CDT Shruti Toth R N Active * Do you have difficulty dressing or bathing? Answer Date of Assessment Author Status No 06/14/2023 5:39 PM CDT Shruti Toth R N Active * Because of a physical, mental, or emotional condition, do you have difficulty doing errands alone such as visiting a doctor's office or shopping? Answer Date of Assessment Author Status No 06/14/2023 5:39 PM CDT Shruti Toth R N Active documented as of this encounter Mental Status * Because of a physical, mental, or emotional condition, do you have serious difficulty concentrating, remembering, or making decisions? Answer Entry Date Author Status No 06/14/2023 5:39 PM CDT Shruti Toth R N Active documented in this encounter Plan of Treatment Upcoming Encounters Date Type Department Care Team (Late st Contact Info) Description 12/01/2024 3:15 PM CDT [facility], [address] [address] Molina Olsen MD [facility]. [address] [address] 01/28/2025 2:00 PM CREDIT INTERVIEWER Office Visit [facility] Medical Group Diabetes and Endocrinology - [address] [phone] Bettye Mckeon MD [address] [place] [address] documented as of this encounter Visit Diagnoses Not on filedocumented in this encounter Additional Health Concerns Assessment Noted Time PHQ-9 Depression Total Score: 0 05/02/19 22 1:28 PM CDT documented as of this encounter Care Teams Television Equipment Operator Relationship Specialty Start Date End Date Ever Gaona NP PCP - General NURSE PRACTITIONER 07/17/22 documented as of this encounter
--- OUTSIDE RECORDS SUMMARY | 2024-09-25 17:56 | XMS_ITS | Clinical Summary ---
Author Organization [facility] Address [address] [place] [address] Care Team Providers Care Cloth Beamer Name Role Phone Ever Gaona NP Primary Care Provider [phone] Allergies Active Allergy Reactions Criticality Noted Date Comments Latex Rash Low 06/15/2023 Naproxen Headache,Vomiting 02/02/2019 Sucralose GI Upset,Headache 02/02/2019 Tape Rash Low 06/15/2023 Medications docusate sodium 100 MG capsuleIndication s:supplement replacement Take 3 capsules (300 mg total) by mouth 2 (two) times daily. Indications: supplement replacement Active Zinc 50 MG CapIndications:hses pplement replacement Take 100 mg by mouth daily. Indications: supplement replacement Active CRANBERRY ORIndications:sup plement replacement Take 4,200 mg by mouth daily. Indications: supplement replacement Active vitamin C 500 MG tabletIndications :supplement replacement Take 1 tablet (500 mg total) by mouth daily. Indications: supplement replacement Active magnesium 250 MG tabletIndications :supplement replacement Take 3 tablets (750 mg total) by mouth 2 (two) times daily. Indications: supplement replacement Active vitamin D3, cholecalciferol, 10 MCG (400 UNIT) tabletIndications :supplement replacement Take 2 tablets (800 Units total) by mouth daily. Indications: supplement replacement Active VITAMIN E ORIndications:sup plement replacement Take 180 mg by mouth daily. Indications: supplement replacement Active Specialty Vitamins Products (BIOTIN PLUS KERATIN) 17125-427 MCG-MG TabIndications:hess pplement replacement Take 1 tablet by mouth 2 (two) times a day. Indications: supplement replacement 9 Active aspirin EC (ECOTRIN) 81 MG tablet Take 1 tablet (81 mg total) by mouth daily. Active valACYclovir (VALTREX) 500 MG tablet Take 1 tablet (500 mg total) by mouth daily as needed (Per outbreak). 4 Active vitamin B-12 (CYANOCOBALAMIN) 500 MCG tablet Take 2 tablets (1,000 mcg total) by mouth daily. Active Collagen-Vitamin C-Biotin (COLLAGEN 1500/C OR) Take 1 Dose by mouth daily. Active atorvastatin (LIPITOR) 80 MG tablet Take 1 tablet (80 mg total) by mouth every evening. 30 tablet 5 Active busPIRone (BUSPAR) 15 MG tablet Take 1 tablet (15 mg total) by mouth 2 (two) times a day. 30 tablet 5 Active carvedilol (COREG) 3.125 MG tablet Take 1 tablet by mouth twice daily 180 tablet 2 5 Active insulin glargine (BASAGLAR KWIKPEN) 100 UNIT/ML injection (PEN)Indications: Type 1 diabetes mellitus with hyperglycemia ([facility] HHS/HCC) Inject 16 Units into the skin nightly at bedtime. 15 mL 3 5 026 Active Insulin Pen Needle (BD PEN NEEDLE RAUL U/F) 32G X 4 MM MiscIndications:T ype 1 diabetes mellitus with stage 3a chronic kidney disease ([facility] HHS/[facility]) To inject insulin daily 100 each 3 5 Active spironolactone (ALDACTONE) 25 MG tablet Take 0.5 tablets (12.5 mg total) by mouth daily. 45 tablet 1 5 Active sacubitril-valsar lombardo (ENTRESTO) 24-26 MG tabletIndications :CAD (coronary artery disease),Hyperten jeanette, unspecified type Take 1 tablet by mouth 2 (two) times daily. 180 tablet 1 5 Active clopidogrel (PLAVIX) 75 MG tablet Take 1 tablet (75 mg total) by mouth daily. 30 tablet 3 5 Active Active Problems Problem Noted Date Diagnosed Date Unilateral weakness 02/19/2024 NSTEMI (non-ST elevated myoc ardial infarction) ([facility]) 10/28/2023 Cardiomyopathy, unspecified type ([facility]) 09/04/2023 Coronary artery disease invo lving [place] coronary artery of [place] heart without angina pectoris 09/04/2023 Acute HFrEF (heart failure w ith reduced ejection fraction) ([facility]) 06/13/2023 Cellulitis 09/01/2022 OM (osteomyelitis) ([facility]) 08/31/2022 Type 2 diabetes mellitus wit h foot ulcer, with long-term current use of insulin ([facility]) 04/06/2019 Diabetic ulcer of toe ([facility]) 02/03/20 19 Diabetes mellitus ([facility]) 02/28/2012 Overview (08/02/2022): Diabetes mellitus Endometriosis 02/28/2012 Overview (08/02/2022): Endometriosis Hypertension 02/28/2012 Overview (08/02/2022): Hypertension Encounters Date Type Department Care Team Description 08/27/2024 Telephone [facility], [address] [address] Nancy Sanford, THERAPEUTIC SALES SPECIALIST-C Information ( Depart of Labor [facility]) 08/19/2024 Telephone [facility] Medical Group Diabetes and Endocrinology - [address] [phone] Bettye Mckeon MD Callback 08/13/2024 Orders Only [facility], [address] [address] Jo Guerra RN 08/13/2024 Hstry Message Enc [facility] [address], [address] [address] [facility] Provider Recommendations 08/12/2024 Telephone [facility], [address] [address] Molina Olsen MD Refill Request (BRILIN[place]) 08/10/2024 Telephone [facility], [address] [address] Molina Olsen MD Refill Request (ENTRESTO, SPIRONOLACTONE) 08/10/2024 Telephone [facility], [address] [address] Jo Guerra roofer applicator 08/06/2024 Results Follow-Up [facility] [place] [address] Nancy Sanford, THERAPEUTIC SALES SPECIALIST-C IRON SAT PANEL (IRON,IBC,%SAT), CBC W/DIFF AUTOMATED 08/04/2024 6:45 AM CDT - 08/04/2024 11:59 PM CDT [place] [address] Nancy Sanford, THERAPEUTIC SALES SPECIALIST-C Discharge Disposition: Home or Self Care (Routine Discharge) 08/04/2024 6:40 AM CDT - 08/04/2024 6:44 AM CDT Hospital Encounter [facility] [place] [address] Bettye Mckeon MD Discharge Disposition: Home or Self Care (Routine Discharge) 08/04/2024 MyChart Message Enc [facility] Medical Group Diabetes and Endocrinology - [address] [phone] Bettye Mckeon MD Lab results 08/04/2024 Orders Only [facility] [place] [address] Nancy Sanford NP-C 08/04/2024 Orders Only [facility] [place] [address] Bettye Mckeon MD 08/04/2024 Travel 07/29/2024 Telephone [facility], [address] [place] [address] Jo Guerra RN Concerns 07/28/2024 2:40 PM CDT Office Visit [facility] Medical [facility] Diabetes and Endocrinology [address] [phone] Bettye Mckeon MD Type 1 Diabetes 07/28/2024 Travel 07/13/2024 Telephone [facility] Diabetes and Endocrinology [address] [phone] Bettye Mckeon MD Reschedule from Last 3 Months Immunizations Immunization Administration Dates Next Due Influenza Adult (Generic) 11/09/2020,11/18/2012 Td (Tenivac) preservative free 04/07/2018 Family History * Patient is adopted Medical History Relation Comments suicide Brother Diabetes Father Relation Status Comments Brother Father Mother Social History Tobacco Use Types Packs/Day Years Used Date Smoking Tobacco: Never Passive Smoke Exposure: Never Smokeless Tobacco: Never Tobacco Cessation:Counseling Given: Not Answered Alcohol Use Standard Drinks/Week Comments Yes 0 (1 standard drink = 0.6 oz pur e alcohol) rare, social [id number] Health Literacy Answer Date Recor ded How often do you need to hav e someone help you when you read instructions, pamphlets, or other written material from your doctor or pharmacy? Never 02/19/[address] [facility] Utilities Answer Date Recorded In the past [...] week 02/19/2024 How often do you attend [facility] or nondenominational services? Never 02/19/2024 Do you belong to any clubs o r organizations such as jainism groups, unions, fraternal or athletic groups, or [...] Date Recorded Patient Health Questionnaire-2 Score 0 07/28/2024 [facility] [place] Occupat ional [facility] - Occupational Stress [...] place to sleep or slept in a assisted (including now)? No 08/31/2022 Housing Stability Vital Sign Answer Marlo e Recorded In the last 12 months, was t here a time when you were not able to pay the mortgage or rent on time? No 02/19/2024 In the past 12 months, how m any times have you moved where you were living? 1 02/19/2024 At any time in the past 12 m [facility], were you homeless or living in a assisted (including now)? No 02/19/2024 Comments No Sex and Gender Information Value Date Recorded Sex Assigned at Female 04/20/2024 11:41 AM CDT Legal Sex Female 8:47 AM CDT Gender Identity Not on file Sexual Orientation Not on file Last Filed Vital Signs Vital Sign Reading Time Taken Comments Blood Pressure 120/80 07/28/2024 3:20 PM CDT Pulse 86 07/28/2024 3:20 PM CDT Temperature 37 C (98.6 F) 02/20/2024 11:08 AM VOLUNTEER FIREFIGHTER Respiratory Rate 19 02/20/2024 11:08 AM VOLUNTEER FIREFIGHTER Oxygen Saturation 99% 07/28/2024 3:20 PM CDT Inhaled Oxygen Concentration - - Weight 71.5 kg (157 lb 9.6 oz) 07/28/2024 3:20 P M CDT Height 172.7 cm (5' 8) 07/28/2024 3:20 PM CDT Body Mass Index 23.96 07/28/2024 3:20 PM CDT Plan of Treatment Upcoming Encounters Date Type Department Care Team (Late st Contact Info) Description 12/01/2024 3:15 PM CDT Office Visit [facility], [address] [phone] Molina Olsen MD [facility]. [address] [phone] 01/28/2025 2:00 PM VOLUNTEER FIREFIGHTER Office Visit [facility] Medical Group Diabetes and Endocrinology - [address] [phone] Bettye Mckeon MD [address] [place] [address] Health Maintenance Due Date Last Done Comments Colorectal Cancer Screening Colonoscopy (10 Years) 1976 Annual Physical 01/18/1979 Diabetes: Retinopathy Eye Exam 01/18/1994 Hepatitis B Vaccines (1 of 3 - 19+ 3-dose series) 01/18/1995 Pneumococcal Vaccine: Pediatrics (0 to 5 Years) and At-Risk Patients (6 to 49 Years) (1 of 2 - PCV) 01/18/1995 Mammogram Screening 2016 DTaP, Tdap and Td Vaccines (1 - Tdap) 04/08/2018 04/07/2018 COVID-19 Vaccine (3 - 2023- season) 2023 04/04/2020, 03/14/2020 Hemoglobin A1C 01/27/2025 07/28/2024, 12/06/2023, 10/10/2023, Additional history exists Kidney Health Evaluation 08/04/2025 08/04/2024 Lipid Panel 08/04/2025 08/04/2024, 01/0 10/2024, 10/29/2023, Additional history exists Hepatitis C Completed 12/30/2023 PHQ-2 (Physician [place]) Completed 07/28/2024 Meningococcal B Vaccine Aged Out No l onger eligible based on patient's age to complete this topic Meningococcal Vaccine Aged Out No baljinder frances eligible based on patient's age to complete this topic RSV Immunizations Under 20 Months Aged Out No longer eligible based on patient's age to complete this topic Procedures Procedure Name Priority Date/Time Associated Diagnosis Comments CBC W/DIFF AUTOMATED Routine 08/04/2024 7:06 AM CDT Weakness IRON SAT PANEL (IRON,IBC,%SAT) Routine 08/04/2024 7:06 AM CDT Weakness LIPID PANEL Routine 08/04/2024 7:06 AM CDT Type 1 diabetes mellitus with stage 3a chronic kidney disease ([facility] HHS/HCC) Mixed hyperlipidemia ALBUMIN URINE RANDOM W/CREATININE Routine 08/04/2024 6:56 AM CDT Type 1 diabetes mellitus with stage 3a chronic kidney disease ([facility] HHS/HCC) Mixed hyperlipidemia HEMOGLOBIN, GLYCOSYLATED Routine 07/28/2024 3:37 PM CDT Type 1 diabetes mellitus with stage 3a chronic kidney disease ([facility] HHS/HCC) 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, macular edema presence unspecified, unspecified retinopathy severity (CMS/HCC HHS/HCC) COLLECT.CAPILLARY (FNGR,HEEL,EAR) Routine 07/28/2024 3:36 PM CDT Type 1 diabetes mellitus with stage 3a chronic kidney disease (CMS/HCC HHS/HCC) 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, macular edema presence unspecified, unspecified retinopathy severity (CMS/HCC HHS/HCC) GLUCOSE BLOOD, MONITOR DEVICE Routine 07/28/2024 3:36 PM CDT Type 1 diabetes mellitus with stage 3a chronic kidney disease ([facility] HHS/HCC) 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, macular edema presence unspecified, unspecified retinopathy severity (CMS/HCC HHS/HCC) from Last 3 Months Results * (ABNORMAL) IRON SAT PANEL (IRON,IBC,%SAT) (08/04/2024 7:06 AM CDT) IRON 22(L) 50.0 - 170.0 MCG/DL 08/06/2024 12:05 PM CDT [facility] IRON BINDING CAPACITY 405 250 - 450 MCG/DL 08/06/2024 12:05 PM CDT [facility] IRON SATURATION 5(L) 20 - 55 % 12:05 PM CDT [facility] 08/04/2024 7:06 AM CDT us Nancy Sanford THERAPEUTIC SALES SPECIALIST-C LABORATORY Final Re sult [facility] [address] [place] [address], [place] [phone] * (ABNORMAL) LIPID PANEL (08/04/2024 7:06 AM CDT) Pathologist [facility] CHOLESTEROL 110 <200 MG/DL 08/04/2024 8:47 AM CDT [facility] TRIGLYCERIDES 155(H) <150 MG/DL 08/04/2024 8:47 AM CDT [facility] HDL 60 >40.0 MG/DL 08/04/2024 8:47 AM CDT [facility] LDL (CALCULATED) 19 <100 MG/DL 08/04/2024 8:47 AM CDT [facility] Comment:CALCULATED USING THE FRIEDEWALD EQUATION NON HDL CHOLESTEROL 50 <130 MG/DL 08/04/2024 8:47 AM CDT [facility] CHOL/HDL RATIO 1.8 0.0 - 4.5 08/04/2024 8:47 AM CDT [facility] VLDL CALCULATION 31 5 - 55 MG/DL 08/04/2024 8:47 AM CDT [facility] LIPID INTERPRETATION 08/04/2024 8:47 AM CDT [facility] Comment: NIH CONCENSUS REPORT RECOMMENDATIONS: ADULT CHILD LOW RISK: CHOLESTEROL <200 <170 TRIGLYCERIDE <150 --- HDL >=60 --- LDL <100 <110 BORDERLINE: CHOLESTEROL 200-239 170-199 TRIGLYCERIDE 150-199 --- HDL 40-59 --- LDL 100-159 110-129 HIGH RISK: CHOLESTEROL >=240 >=200 TRIGLYCERIDE >=200 --- HDL <40 --- LDL >=160 >=130 08/04/2024 7:06 AM CDT Bettye Mckeon MD LABORATORY Final Result [facility] [address] [place] [address], * (ABNORMAL) CBC W/DIFF AUTOMATED (08/04/2024 7:06 AM CDT) WBC 7.04 4.5 - 11.0 x10'3/uL 08/04/2024 8:22 AM CDT [facility] RBC 4.18(L) 4.20 - 5.40 x10'6/uL 08/04/2024 8:22 AM CDT [facility] HGB 10.5(L) 12.0 - 16.0 G/DL 08/04/2024 8:22 AM CDT [facility] HCT 34.3(L) 38.0 - 48.0 % 08/04/2024 8:22 AM CDT [facility] MCV 82.1 81.0 - 99.0 FL 08/04/2024 8:22 AM CDT [facility] MCH 25.1(L) 27.0 - 31.0 PG 08/04/2024 8:22 AM CDT [facility] MCHC 30.6(L) 32.0 - 36.0 G/DL 08/04/2024 8:22 AM CDT [facility] RDW 16.6(H) 11.5 - 14.5 % 08/04/2024 8:22 AM CDT [facility] PLT 290 130 - 400 x10'3/uL 08/04/2024 8:22 AM CDT [facility] MPV 11.0 9.3 - 12.2 FL 08/04/2024 8:22 AM CDT [facility] DIFFERENTIAL TYPE AUTOMATED DIFFERENTIAL 08/04/2024 8:22 AM CDT [facility] NEUTROPHILS % 73.1 % 08/04/2024 8:22 AM CDT [facility] LYMPHOCYTES % 15.2 % 08/04/2024 8:22 AM CDT [facility] MONOCYTES % 7.7 % 08/04/2024 8:22 AM CDT [facility] EOSINOPHILS 3.0 % 08/04/2024 8:22 AM CDT [facility] BASOPHILS 0.6 % 08/04/2024 8:22 AM CDT [facility] IMMATURE GRANS % 0.4 % 08/05/19 8:22 AM CDT [facility] ABS. NEUTROPHILS 5.15 1.80 - 7.70 x10'3/uL 08/04/2024 8:22 AM CDT [facility] ABS. LYMPHOCYTES 1.07 1.00 - 4.80 x10'3/uL 08/04/2024 8:22 AM CDT [facility] ABS. MONOCYTES 0.54 0.24 - 0.86 x10'3/uL 08/04/2024 8:22 AM CDT [facility] ABS. EOSINOPHILS 0.21 0.04 - 0.36 x10'3/uL 08/04/2024 8:22 AM CDT [facility] ABS. BASOPHILS 0.04 0.01 - 0.08 x10'3/uL 08/04/2024 8:22 AM CDT [facility] ABS. IMMATURE GRANULOCYTES 0.03 0.00 - 0.49 x10'3/uL 08/04/2024 8:22 AM CDT [facility] 08/04/2024 7:06 AM CDT us Nancy CROUCH LABORATORY Final Re sult [facility] [address] [place] [address], [place] [phone] * (ABNORMAL) MICROALBUMIN CREAT RATIO, URINE RANDOM (08/04/2024 6:56 AM CDT) CREATININE (U) 79.2 28 - 217 MG/DL 08/04/2024 9:13 AM CDT [facility] MICROALBUMIN (U) 49.9(H) <2.0 mg/dL 08/04/2024 9:13 AM CDT [facility] ALBUMIN/CREAT RATIO 630.1(H) <30 MG/G 08/04/2024 9:13 AM CDT [facility] URINE SPECIMEN / Unknown 08/04/2024 6:56 AM CDT us Bettye Mckeon MD URINE ORDERABLES Final Result [facility] [address] [place] [address], [place] [phone] * A1C (BACK OFFICE) (07/28/2024 3:37 PM CDT) HGB A1C 6.8 % [address] 07/28/2024 3:37 PM CDT us Bettye Mckeon MD LABORATORY Final Result Performing Organization Address City/[facility] Co de Phone Number [address], [address] [address], [place] [phone] * (ABNORMAL) GLUCOSE, BLOOD FINGERSTICK (07/28/2024 3:36 PM CDT) GLUCOSE WHOLE BLOOD 130(A) 70 - 100 mg/dL [address] 07/28/2024 3:36 PM CDT us Bettye Mckeon MD LABORATORY Final Result Performing Organization Address [facility] Co de Phone Number [address], [address] [address], [place] [phone] from Last 3 Months Insurance [address] [address] [facility] Advance Directives * DNR (Latest Code Status on File) Date Activated Date Inactivated Comments 02/19/2024 11:43 AM 02/20/2024 5:02 PM * DNR Date Activated Date Inactivated Comments 10/28/2023 4:21 PM 10/29/2023 6:44 PM * Full Code Date Activated Date Inactivated Comments 10/28/2023 4:06 PM 10/28/2023 4:21 PM * DNR Date Activated Date Inactivated Comments 10/28/2023 1:28 PM 10/28/2023 4:06 PM * Full Code Date Activated Date Inactivated Comments 06/14/2023 12:50 AM 06/16/2023 2:06 PM Care Teams Cloth Beamer Relationship Specialty Start Date End Date Ever Gaona NP PCP - General NURSE PRACTITIONER 07/17/22
[2024-09-25 18:15] VITALS: BP 158/80; PULSE 95; RESP 16; TEMP 36.7; O2SAT 98
--- NOTE | 2024-09-25 18:16 | ED_ITS ---
HPI - URI/Sore Throat General Chief Complaint: Upper Respiratory Infection Stated Complaint: facial pain/throat pain History of Present Illness HPI Narrative: 49-year-old female history of diabetes, hypertension, CAD/PTCI presented for complaint of sore throat, nasal congestion and drainage, and facial pressure. Onset 1 week. Denies shortness of breath, wheezing nausea vomiting, fevers or chills. Related Data Home Medications ?Medication ?Instructions ?Recorded ?Confirmed ?Last Taken ?Type magnesium chloride 71.5 mg 71.5 mg PO BID 12/05/18 08/26/23 Unknown History (magnesium chloride) tablet,delayed release (Slow-Mag) multivitamin 1 tablet PO DAILY 12/05/18 08/26/23 Unknown History sacubitril 24 mg-valsartan 26 mg 1 tablet PO BID 07/18/23 08/26/23 Unknown History tablet (Entresto) clopidogrel 75 mg tablet 75 mg PO DAILY 08/20/23 08/26/23 Unknown History zinc acetate 50 mg (zinc) capsule 50 mg PO DAILY 08/20/23 08/26/23 Unknown History (Galzin) atorvastatin 40 mg tablet mg 09/01/24 Unknown History carvedilol 3.125 mg tablet mg 09/01/24 Unknown History spironolactone 25 mg tablet mg 09/01/24 Unknown History Allergies Allergy/AdvReac Type Severity Reaction Status Date / Time naproxen AdvReac Intermediate Nausea Verified 09/23/24 16:52 sucralose AdvReac Intermediate Nausea Verified 09/23/24 16:52 Review of Systems Review of Systems: CONSTITUTIONAL: Denies body aches, fever, chills, or sweats. EYES: Denies visual changes, redness, or discharge. ENT: reports sore throat, rhinorrhea, congestion, denies otalgia. CARDIOVASCULAR: Denies chest pain, palpitations, or edema. RESPIRATORY: Denies dyspnea. GASTROINTESTINAL: Denies abdominal pain, nausea, vomiting, or diarrhea. SKIN: Denies rash NEUROLOGIC: Denies headache PMFSH Past Medical History Medical History History of common carotid artery stent placement BMI 24.0-24.9, adult COVID-19 Depression Diverticulitis DM (diabetes mellitus), type 2, uncontrolled Type 2 diabetes mellitus without complication Surgical History Surgical History History of dilation and curettage H/O: hysterectomy Social History Social History Smoking status: Former smoker Second hand tobacco smoke exposure: No Alcohol intake: current Alcohol use details: once a month Substance use: never Substance use type: does not use Do You Feel Safe in your Home?: Yes Lack of Transportation: No Lack of Food: Never True Current Housing: I Have Housing Concerned About Future Housing: No Difficulty Paying Gas/Electric Bills: No Difficulty Paying for Meds: YES Currently Unemployed: No Education: Bachelor's Degree Difficulty w/ Childcare or Family Care: No Living arrangements: alone Occupation/Education: occupation 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 EYES: conjunctivae clear ENT: Mucous membranes moist. Nasal congestion noted. TMs pearly curtis with normal light reflex bilaterally; no tragal tenderness. Oropharynx erythematous without lesions. Tonsils not enlarged and without exudate. No drooling, no hoarseness, no trismus, uvula midline. No tripod positioning, hot potato voice, or soft palate swelling. NECK: Supple. No lymphadenopathy CHEST: Clear to auscultation, breath sounds equal. No respiratory distress, speaks in full sentences. HEART: Regular rate and rhythm. No murmur heard. SKIN: Warm, dry, no rash. NEURO: Alert and oriented x3. Course Course Emergency Course: Patient is aware of diagnosis, understands and agrees to treatment plan. Anticipatory guidance given. Patient agrees to follow-up as directed and is aware of reasons to seek care at the emergency department. Portions of this record may have been created with voice recognition software Level of Care: Express Care Visit Vital Signs Vital signs: Vital Signs Temperature 98.1 F 09/25/24 18:15 Pulse Rate 95 09/25/24 18:15 Respiratory Rate 16 09/25/24 18:15 Blood Pressure 158/80 H 09/25/24 18:15 Pulse Oximetry 98 09/25/24 18:15 Oxygen Delivery Room Air 09/25/24 18:15 Temperature 98.1 F 09/25/24 18:15 Pulse Rate 95 09/25/24 18:15 Respiratory Rate 16 09/25/24 18:15 Blood Pressure 158/80 H 09/25/24 18:15 Pulse Oximetry 98 09/25/24 18:15 Oxygen Delivery Room Air 09/25/24 18:15 MDM - URI/Sore Throat MDM Narrative Medical decision making narrative: Negative strep result reviewed with pt.Advise supportive treatments. Advised if no improvement in 2 days she can start antibiotic. Patient is appropriate for outpatient treatment and follow-up. Differential Diagnosis Differential diagnosis: Likely upper respiratory infection, viral infection and pharyngitis Lab Data Labs: Lab Results 09/25/24 Range/Units 18:16 POC Grp A Strep Screen Negative (Negative) Discharge Plan Discharge Clinical Impression: Upper respiratory infection Patient Disposition: Home Condition: Stable Instructions: Antibiotic Form, Rhinosinusitis (ED) Additional Instructions: Take antibiotic as directed Recommendations: Flonase spray and Zyrtec (or Claritin/Leandra) over the counter Cough syrup may cause drowsiness; avoid driving or take it at night time. Coricidin HBP if you have hypertension Tylenol 1000mg every 8 hours as needed for pain Symptomatic treatment includes: rest, fluids, and increase humidity of the air at home. If No improvement with the above measures in 48 hours, you can start the antibiotic; take as directed Follow up with your primary care provider in 1 week. Go to the ER for worsening symptoms or concerns. Patient Language: Serbian Prescriptions: New amoxicillin-pot clavulanate 875-125 mg tablet 1 tablet PO Q12H 7 Days Qty: 14 0RF fluconazole 150 mg tablet 150 mg PO DAILY Qty: 1 0RF No Action atorvastatin 40 mg tablet spironolactone 25 mg tablet carvedilol 3.125 mg tablet fluconazole 150 mg tablet 150 mg PO Q72H Qty: 2 0RF Entresto 24-26 mg tablet 1 tablet PO BID clopidogrel 75 mg tablet 75 mg PO DAILY Galzin 50 mg (zinc) capsule 50 mg PO DAILY docusate sodium [Colace] 100 mg capsule 100 mg PO BID PRN (Reason: constipation) Qty: 14 0RF polyethylene glycol 3350 [Miralax] 17 gram/dose powder 17 gm PO DAILY PRN (Reason: constipation) Qty: 238 0RF Slow-Mag 71.5 mg tablet,delayed release (DR/EC) 71.5 mg PO BID multivitamin Tablet 1 tablet PO DAILY insulin glargine [Basaglar KwikPen U-100 Insulin] 100 unit/mL (3 mL) insulin pen 15 unit subcut QPM Qty: 15 1RF buspirone 15 mg tablet See Rx Instructions .ROUTE .COMPLEX Qty: 90 1RF Dose Instruction: TAKE 1 TABLET BY MOUTH THREE TIMES DAILY Rx Instructions: TAKE 1 TABLET BY MOUTH THREE TIMES DAILY Follow-up/Referrals: Ba,DANI Pink [Primary Care Provider] -
[2024-09-25 18:18] LABS: EDSTREPNEGPOS1 Negative (Negative)
== END 2024-09-25 18:28 | disposition home or self-care (01) ==
PROVIDERS: Emergency Provider Nurse Practitioner Family; PCP Physician Assistant
DX: J06.9 Acute upper respiratory infection, unspecified (principal); I25.10 Atherosclerotic heart disease of native coronary artery without angina pectoris; E11.9 Type 2 diabetes mellitus without complications; Z79.4 Long term (current) use of insulin; I10 Essential (primary) hypertension; Z86.16 Personal history of COVID-19; Z95.820 Peripheral vascular angioplasty status with implants and grafts; Z87.891 Personal history of nicotine dependence
CPT/HCPCS: 87081; 87880; 99213; G0463